=== PATIENT | female | born 1970 | race Caucasian/White ===

== ENCOUNTER 2020-03-05 15:21 | Emergency (ER) | payer OTHER, MEDICAID ==
[~2020-03-05] VITALS: Ht 154.9 cm; Wt 135.0 kg
[2020-03-05 17:27] LABS: HEMATOCRIT. 36.2 % (36.0-48.0); HEMOGLOBIN. 11.3 g/dL (12.0-16.0); MEAN CORPUSCULAR HEMOGLOBIN 27.1 pg (28.0-32.0); MEAN CORPUSCULAR VOLUME 86.7 fL (81.0-99.0); MEAN PLATELET VOLUME 8.6 fl (7.4-10.4); PLATELET 302 x1000/uL (130-400); RED BLOOD CELL COUNT 4.17 mill/uL (4.2-5.4)
[2020-03-05 17:34] LABS: CHLORIDE 104 mEq/L (98-107)
[2020-03-05 17:39] LABS: ETHANOL BLOOD < 10 mg/dL
[2020-03-05] MEDS ORDERED: HYDROCODONE/ACETAMINOPHEN 5/325MG TABLET PO ONE (17:45)
[2020-03-05 17:52] LABS: PLATELET ESTIMATE NORMAL
[2020-03-05 18:03] LABS: BG BASE EXCESS 0.6 mmol/L (-2.0-2.0); BG CARBOXYHEMOGLOBIN 0.7 % (0.5-1.5); BG DEOXYHEMOGLOBIN 3.9 % (0.0-5.0); BG FRACTION INSPIRED OXYGEN 21; BG METHEMOGLOBIN 0.1 % (0.0-1.5); BG OXYGEN SATURATION 96.1 % (92.0-98.5); BG OXYHEMOGLOBIN 95.3 % (94.0-97.0); BG PCO2 34.6 mmHg (35.0-45.0); BG PH 7.459 (7.350-7.450); BG PO2 78.8 mmHg (75.0-100.0); BG SAMPLE SITE RIGHT BRACHIAL; BG TOTAL HEMOGLOBIN 12.8 g/dL (12.0-18.0); BG VENT MODE ROOM AIR
[2020-03-05 18:20] VITALS: BP 122/78
== END 2020-03-05 18:30 | disposition home or self-care (01) ==
LOC: ER 15:21
DX: Z48.00 Encounter for change or removal of nonsurgical wound dressing (principal); L02.415 Cutaneous abscess of right lower limb; C95.10 Chronic leukemia of unspecified cell type not having achieved remission; Z59.0 Homelessness
CPT/HCPCS: 36415; 36600; 80053; 80320; 80329; 82375; 82805; 85025; 99283; G0480

== ENCOUNTER 2020-03-19 12:45 | Inpatient (IN) | payer OTHER, MEDICAID ==
[~2020-03-19] VITALS: Ht 157.5 cm; Wt 66.7 kg
[2020-03-19] MEDS ORDERED: PIPERACILLIN/TAZ 3.375G PREMIX 50 ML IV ONE (13:30)
[2020-03-19] MEDS ORDERED: VANCOMYCIN 1 G PREMIX 200 ML IV ONE (13:30)
[2020-03-19] MEDS ORDERED: SODIUM CHLORIDE 0.9% 1000ML BAG (SEPSIS BOLUS) IV ONE (13:30)
[2020-03-19 13:44] LABS: HEMATOCRIT. 39.1 % (36.0-48.0); HEMOGLOBIN. 12.3 g/dL (12.0-16.0); MEAN CORPUSCULAR HEMOGLOBIN 27.7 pg (28.0-32.0); MEAN CORPUSCULAR VOLUME 88.1 fL (81.0-99.0); MEAN PLATELET VOLUME 8.6 fl (7.4-10.4); PLATELET 275 x1000/uL (130-400); RED BLOOD CELL COUNT 4.43 mill/uL (4.2-5.4); RED CELL DISTRIBUTION WIDTH 22.2 % (11.6-14.6)
[2020-03-19 13:49] LABS: CHLORIDE 110 mEq/L (98-107)
[2020-03-19 13:55] LABS: ETHANOL BLOOD < 10 mg/dL
[2020-03-19 13:57] LABS: INR 1.1; PROTHROMBIN TIME 11.2 sec (9.6-11.0)
[2020-03-19 13:59] LABS: CREATINE KINASE 60 IU/L (26-192)
[2020-03-19] MEDS ORDERED: LORAZEPAM 2MG/ML CPJ IV ONE (14:00)
[2020-03-19] MEDS ORDERED: LEVETIRACETAM 500MG PREMIX 100 ML IV ONE (14:00)
[2020-03-19 14:12] LABS: PLATELET ESTIMATE NORMAL
[2020-03-19 14:19] LABS: CLARITY URINE CLEAR (CLEAR); COLOR URINE YELLOW (YELLOW); KETONES URINE NEGATIVE (NEGATIVE); LEUKOCYTE ESTERASE URINE NEGATIVE (NEGATIVE); NITRITE URINE NEGATIVE (NEGATIVE); OCCULT BLOOD URINE NEGATIVE (NEGATIVE); PH URINE 5.5 (4.5-8.0); PROTEIN URINE NEGATIVE (NEGATIVE); SPECIFIC GRAVITY URINE 1.017 (1.005-1.030); UROBILINOGEN URINE 0.2 E.U./dL (0.2-1.0)
[2020-03-19 15:07] LABS: *AMPHETAMINES SCREEN URINE NEGATIVE (NEGATIVE); *BARBITURATES SCREEN URINE NEGATIVE (NEGATIVE); *COCAINE SCREEN URINE NEGATIVE (NEGATIVE)
[2020-03-19 15:08] LABS: *BENZODIAZEPINES SCREEN URINE NEGATIVE (NEGATIVE); CANNABINOID URINE SCREEN NEGATIVE (NEGATIVE); METHADONE URINE SCREEN NEGATIVE (NEGATIVE); OPIATES URINE SCREEN NEGATIVE (NEGATIVE); PHENCYCLIDINE URINE SCREEN NEGATIVE (NEGATIVE)
[2020-03-19] MEDS ORDERED: NOREPINEPHRINE 8MG/250ML PMX 250 ML IV ONE (17:45)
[2020-03-19] MEDS ORDERED: ACETAMINOPHEN 325MG TABLET PO ONE (19:45)
[2020-03-20] VITALS (13 sets, daily range): BP systolic 82–108; BP diastolic 47–82
[2020-03-20] MEDS ORDERED: NOREPINEPHRINE 8MG/250ML PMX 250 ML IV ONE (08:45)
[2020-03-20] MEDS ORDERED: NOREPINEPHRINE 8MG/250ML PMX 250 ML IV PRN (08:45)
[2020-03-20] MEDS ORDERED: LIDOCAINE HCL 1% 20ML VIAL (Pyxis) INJ ONE (10:30)
[2020-03-20] MEDS ORDERED: ACETAMINOPHEN 325MG TABLET PO PRN (11:00)
[2020-03-20] MEDS ORDERED: ONDANSETRON HCL 4MG/2ML INJ IV PRN (11:00)
[2020-03-20 12:11] LABS: BG BASE EXCESS -1.9 mmol/L (-2.0-2.0); BG CARBOXYHEMOGLOBIN 0.3 % (0.5-1.5); BG DEOXYHEMOGLOBIN 6.3 % (0.0-5.0); BG HCO3 ACT 21.6 mmol/L (22.0-26.0); BG METHEMOGLOBIN 0.2 % (0.0-1.5); BG OXYGEN SATURATION 93.7 % (92.0-98.5); BG OXYHEMOGLOBIN 93.2 % (94.0-97.0); BG PH 7.447 (7.350-7.450); BG PO2 64.1 mmHg (75.0-100.0); BG SAMPLE SITE RIGHT BRACHIAL; BG TOTAL HEMOGLOBIN 10.2 g/dL (12.0-18.0); BG VENT MODE NASAL CANNULA
[2020-03-20] MEDS: ENOXAPARIN 40MG/0.4ML SYR SUBCUT SCH (12:28)
[2020-03-20] MEDS: AZITHROMYCIN 250 MG TABLET PO SCH (12:28)
[2020-03-20 12:37] LABS: CHLORIDE 115 mEq/L (98-107)
[2020-03-20 12:47] LABS: HEMATOCRIT. 29.4 % (36.0-48.0); HEMOGLOBIN. 8.9 g/dL (12.0-16.0); MEAN CORPUSCULAR HEMOGLOBIN 26.6 pg (28.0-32.0); MEAN CORPUSCULAR VOLUME 87.6 fL (81.0-99.0); MEAN PLATELET VOLUME 9.1 fl (7.4-10.4); PLATELET 214 x1000/uL (130-400); RED BLOOD CELL COUNT 3.36 mill/uL (4.2-5.4); RED CELL DISTRIBUTION WIDTH 21.9 % (11.6-14.6)
[2020-03-20] MEDS: CEFEPIME 1,000 MG in DEXTROSE 5% WATER 50 ML IV SCH (13:00)
[2020-03-20 13:36] LABS: PLATELET ESTIMATE NORMAL
[2020-03-20] MEDS ORDERED: LORAZEPAM 2MG/ML CPJ IV PRN (15:30)
[2020-03-20] MEDS ORDERED: VANCOMYCIN 1250MG in DEXTROSE 5% WATER 250ML IV SCH (17:00)
[2020-03-20] MEDS ORDERED: GUAIFENESIN-DM 200MG-20MG/10ML UDC PO PRN (20:15)
[2020-03-20 20:41] LABS: T4 FREE 0.98 ng/dL (0.76-1.46)
[2020-03-20 21:10] LABS: FOLIC ACID (FOLATE) SERUM > 20.00 ng/mL (>5.38); VITAMIN B12 SERUM 1755 pg/mL (211-911)
[2020-03-20] MEDS: LEVETIRACETAM 500MG TABLET PO SCH (21:52)
[2020-03-20] MEDS: LINEZOLID 600 MG PREMIX 300 ML IV SCH (21:53)
[2020-03-21] VITALS (96 sets, daily range): BP systolic 76–137; BP diastolic 46–103
[2020-03-21] MEDS: CEFEPIME 1,000 MG in DEXTROSE 5% WATER 50 ML IV SCH ×2 (01:30→12:03)
[2020-03-21] MEDS ORDERED: VANCOMYCIN 1 G PREMIX 200 ML IV SCH (05:00)
[2020-03-21] MEDS: NOREPINEPHRINE 8 MG in DEXTROSE 5% WATER 250 ML IV PRN ×2 (05:07→21:16)
[2020-03-21 05:43] LABS: HEMATOCRIT. 33.3 % (36.0-48.0); HEMOGLOBIN. 10.1 g/dL (12.0-16.0); MEAN CORPUSCULAR HEMOGLOBIN 26.6 pg (28.0-32.0); MEAN CORPUSCULAR VOLUME 87.7 fL (81.0-99.0); MEAN PLATELET VOLUME 9.3 fl (7.4-10.4); PLATELET 228 x1000/uL (130-400)
[2020-03-21 05:46] LABS: CHLORIDE 111 mEq/L (98-107)
[2020-03-21 06:01] LABS: HAPTOGLOBIN 278 mg/dL (30-200)
[2020-03-21] MEDS: LINEZOLID 600 MG PREMIX 300 ML IV SCH ×2 (08:03→21:16)
[2020-03-21] MEDS: AZITHROMYCIN 250 MG TABLET PO SCH (08:03)
[2020-03-21] MEDS: LEVETIRACETAM 500MG TABLET PO SCH ×2 (08:03→21:32)
[2020-03-21] MEDS ORDERED: ALBUTEROL 6.7GM HFA INHALER ORI PRN (11:15)
[2020-03-21] MEDS: MIDODRINE HCL 5MG TABLET PO SCH ×2 (12:03→18:34)
[2020-03-21] MEDS: ENOXAPARIN 40MG/0.4ML SYR SUBCUT SCH (12:07)
[2020-03-21 13:54] LABS: PLATELET ESTIMATE NORMAL
[2020-03-22] VITALS (46 sets, daily range): BP systolic 79–147; BP diastolic 44–112
[2020-03-22] MEDS: CEFEPIME 1,000 MG in DEXTROSE 5% WATER 50 ML IV SCH ×2 (00:06→14:43)
[2020-03-22 05:49] LABS: HEMATOCRIT. 29.7 % (36.0-48.0); HEMOGLOBIN. 9.4 g/dL (12.0-16.0); MEAN CORPUSCULAR HEMOGLOBIN 27.4 pg (28.0-32.0); MEAN CORPUSCULAR VOLUME 86.3 fL (81.0-99.0); MEAN PLATELET VOLUME 8.9 fl (7.4-10.4); PLATELET 218 x1000/uL (130-400); RED BLOOD CELL COUNT 3.45 mill/uL (4.2-5.4); RED CELL DISTRIBUTION WIDTH 21.4 % (11.6-14.6)
[2020-03-22 05:50] LABS: CHLORIDE 109 mEq/L (98-107)
[2020-03-22] MEDS ORDERED: ALBUTEROL (0.083%) 2.5MG/3ML NEB HHN PRN (08:45)
[2020-03-22] MEDS: LINEZOLID 600 MG PREMIX 300 ML IV SCH (08:57)
[2020-03-22] MEDS: MIDODRINE HCL 5MG TABLET PO SCH ×3 (08:58→16:37)
[2020-03-22] MEDS: AZITHROMYCIN 250 MG TABLET PO SCH (08:59)
[2020-03-22] MEDS: LEVETIRACETAM 500MG TABLET PO SCH ×2 (08:59→20:23)
[2020-03-22 10:03] LABS: PLATELET ESTIMATE NORMAL
[2020-03-22] MEDS: ENOXAPARIN 40MG/0.4ML SYR SUBCUT SCH (12:10)
[2020-03-22] MEDS ORDERED: CEFTRIAXONE 2 G PREMIX 50 ML IV SCH (17:15)
[2020-03-22] MEDS: CEFTRIAXONE 2 G in DEXTROSE 5% WATER 50 ML IV SCH (19:18)
[2020-03-23 00:33] VITALS: BP 91/48
[2020-03-23 04:00] VITALS: BP 101/43
[2020-03-23 08:00] VITALS: BP 108/68
[2020-03-23] MEDS: MIDODRINE HCL 5MG TABLET PO SCH ×3 (09:07→17:15)
[2020-03-23] MEDS: AZITHROMYCIN 250 MG TABLET PO SCH (09:07)
[2020-03-23] MEDS: LEVETIRACETAM 500MG TABLET PO SCH ×2 (09:07→21:09)
[2020-03-23 12:00] VITALS: BP 91/49
[2020-03-23] MEDS: ENOXAPARIN 40MG/0.4ML SYR SUBCUT SCH (12:46)
[2020-03-23 16:00] VITALS: BP 104/58
[2020-03-23] MEDS: CEFTRIAXONE 2 G in DEXTROSE 5% WATER 50 ML IV SCH (19:16)
[2020-03-23 20:00] VITALS: BP 108/44
[2020-03-24] VITALS: BP 97/44
[2020-03-24 04:00] VITALS: BP 101/44
[2020-03-24 08:00] VITALS: BP 81/39
[2020-03-24] MEDS: LEVETIRACETAM 500MG TABLET PO SCH (09:17)
[2020-03-24] MEDS: MIDODRINE HCL 5MG TABLET PO SCH ×3 (09:17→16:46)
[2020-03-24] MEDS: AZITHROMYCIN 250 MG TABLET PO SCH (09:17)
[2020-03-24] MEDS ORDERED: KEPP500 PO (09:19)
[2020-03-24] MEDS ORDERED: AMOX-494 MT (09:19)
[2020-03-24] MEDS ORDERED: MIDO10TA MT (09:19)
[2020-03-24 12:13] VITALS: BP 114/56
[2020-03-24] MEDS: ENOXAPARIN 40MG/0.4ML SYR SUBCUT SCH (12:59)
[2020-03-24 13:46] VITALS: BP 108/46
[2020-03-24 16:00] VITALS: BP 108/46
== END 2020-03-24 17:55 | disposition home or self-care (01) | DRG 871 ==
LOC: ER 12:45 → MICUSO 20:18 → EDBEDREQ 20:38 → EDBEDREQSVC 20:38 → EDBEDREQTM 20:38 → MICUSO 23:09 → 5WST 03-22 12:51
PROVIDERS: ADMIT Internal Medicine; ATTEND Internal Medicine
PROC: 05HY33Z Insertion of Infusion Device into Upper Vein, Percutaneous Approach (ICD-10-PCS; principal; 2020-03-20)
PROC: B54MZZA Ultrasonography of Right Upper Extremity Veins, Guidance (ICD-10-PCS; 2020-03-20)
DX: A40.9 Streptococcal sepsis, unspecified (principal); G92 Toxic encephalopathy; R65.21 Severe sepsis with septic shock; J96.00 Acute respiratory failure, unspecified whether with hypoxia or hypercapnia; J18.9 Pneumonia, unspecified organism; I31.3 Pericardial effusion (noninflammatory); E44.1 Mild protein-calorie malnutrition; C91.10 Chronic lymphocytic leukemia of B-cell type not having achieved remission; D64.9 Anemia, unspecified; E78.00 Pure hypercholesterolemia, unspecified; E87.8 Other disorders of electrolyte and fluid balance, not elsewhere classified; I51.7 Cardiomegaly; F32.9 Major depressive disorder, single episode, unspecified; G40.409 Other generalized epilepsy and epileptic syndromes, not intractable, without status epilepticus; Z20.828 Contact with and (suspected) exposure to other viral communicable diseases; T14.8XXA Other injury of unspecified body region, initial encounter; X58.XXXA Exposure to other specified factors, initial encounter; Z85.72 Personal history of non-Hodgkin lymphomas; Y93.89 Activity, other specified; Y92.89 Other specified places as the place of occurrence of the external cause; Y99.8 Other external cause status; Z79.899 Other long term (current) drug therapy; Z68.26 Body mass index [BMI] 26.0-26.9, adult; R62.50 Unspecified lack of expected normal physiological development in childhood; S81.801A Unspecified open wound, right lower leg, initial encounter
CPT/HCPCS: 36415; 36600; 70551; 71045; 71250; 76937; 80048; 80053; 80305; 80320; 81003; 82140; 82375; 82550; 82607; 82746; 82805; 82962; 83010; 83036; 83605; 83615; 84145; 84439; 84443; 84481; 84484; 85025; 86140; 86880; 87077; 87186; 87635; 93005; 93306; 96365; 99291; C1725; J0692; J0696; J1650; J1953; J2020; J2060; J2543; J3370; J3490; J7030; J7060; G0480